=== PATIENT | female | born 1965 | race Hispanic/Latino ===

== ENCOUNTER 2016-08-23 15:48 | Emergency (ER) | payer OTHER ==
[~2016-08-23 15:48] MED LIST: AMOXICILLIN875 M1 PO; ATORVASTATIN CA10 M1 PO; BYDUREON P2 MG/0.65 SC; LANTUS SOL100 UNIT/1 SC; METFORMIN HCL500 M4 PO; PANTOPRAZOLE SO40 M1 PO; PREDNISONE20 M1 PO; TRILIPIX135 M1 PO
--- NOTE | 2016-08-23 16:30 | ED HEADACHE COMPLAINT ---
History of Present Illness General Chief Complaint: General Adult Stated Complaint: PT IS HAVING PAIN IN THE [facility] FOR 2DYS Source: patient Exam Limitations: no limitations Vital Signs & Intake/Output Vital Signs & Intake/Output Vital Signs Date Time Temp Pulse Resp B/P B/P Pulse O2 O2 Flow FiO2 Mean Ox Delivery Rate 08/23 1815 96.1 96 12 138/74 99 Room Air 08/23 1700 97 08/23 1600 98.0 92 22 135/77 97 ED Intake and Output 08/24 0000 08/23 1200 Intake Total 0 Output Total Balance 0 Intake, Oral 0 Patient 160 lb Weight Allergies Coded Allergies: No Known Allergies (04/19/16) Reconcile Medications Amlodipine Besylate 10 MG TABLET 1 TAB PO DAILY BP (Reported) Aspirin (Ecotrin*) 81 MG TABLET.DR 1 TAB PO DAILY HEART/BLOOD (Reported) Atorvastatin Calcium 10 MG TABLET 1 TAB PO QPM CHOLESTEROL (Reported) Butalb/Acetaminophen/Caffeine (Fioricet 50-300-40 MG Capsule) 50 MG-300 MG-40 MG CAPSULE 1 TAB PO TID PRN HEADACHE Cholecalciferol (Vitamin D3) (Vitamin D) 1,000 UNIT TABLET 1 TAB PO DAILY SUPPLEMENT (Reported) Exenatide Microspheres (Bydureon Pen) 2 MG/0.65 ML PEN.INJCTR 2 MG SC QTHURS DM (Reported) Fenofibrate Nanocrystallized (Fenofibrate) 145 MG TABLET 1 TAB PO DAILY CHOLESTEROL/TRIGLYCERIDES (Reported) Insulin Glargine,Hum.rec.anlog (Lantus Solostar) 100 UNIT/ML (3 ML) INSULN.PEN 30 UNIT SC QPM DM (Reported) Ketorolac Tromethamine 10 MG TABLET 1 TAB PO TID PRN HEADACHE Metformin HCl (Metformin HCl ER) 500 MG TAB.ER.24H 1 TAB PO BID DM (Reported) Pantoprazole Sodium 40 MG TABLET.DR 1 TAB PO DAILY GI (Reported) Triage Note: PER PT PULSATATION TO [facility] X 3 DAYS NO BLURRY VISION NO DIZZYNESS INTERMITTANT IN NATURE. Triage Nurses Notes Reviewed? yes Onset: 2 days Duration: day(s):, intermittent Timing: multiple episodes daily Quality/Severity: mild Head Injury Location: none HPI: pt is a 51 y/o female with h/o DM and HLD presenting with intermittent episodes of throbbing pain to temporal area x2 days. Reports episodes last a few seconds and then self resolve, no identifiable triggers. Has not tried anything for pain. Denies visual changes, claudication, or fevers. Patient does state that she has had increased frequency of migraine headaches however in the past 2 days symptoms are "different" Denies any fever or chills blurred vision nausea vomiting neck pain neck stiffness. Patient has tried Motrin with no relief of symptoms. Currently patient is asymptomatic (TONIA CONNORS) Past History Travel History Traveled to [place] past 21 day No Medical History Any Pertinent Medical History? see below for history Neurological: NONE EENT: NONE Cardiovascular: hyperlipidemia Gastrointestinal: GERD Hepatic: NONE Renal: NONE Musculoskeletal: NONE Psychiatric: NONE Endocrine: diabetes Surgical History Surgical History: non-contributory Psychosocial History What is your primary language German Tobacco Use: Current Daily Use Daily Tobacco Use Amount/Type: => 5 Cigarettes daily Family History Hx Contributory? No (TONIA CONNORS) Review of Systems Review of Systems Constitutional: Reports: no symptoms. Eyes: Reports: see HPI. Denies: blurred vision, drainage, decreased acuity, foreign body sensation, inflammation, pain, photophobia, previous injury, shadows. Ears, Nose, Throat, Mouth: Reports: no symptoms. Respiratory: Reports: no symptoms. Cardiovascular: Reports: no symptoms. Gastrointestinal/Abdominal: Reports: no symptoms. Genitourinary: Reports: no symptoms. Musculoskeletal: Reports: no symptoms. Skin: Reports: no symptoms. Neurological/Psychological: Reports: see HPI, headache. Hematologic/Endocrine: Reports: no symptoms. Endocrine: Reports: no symptoms. Immunologic/Allergic: Reports: no symptoms. All Other Systems: Reviewed and Negative (TONIA CONNORS) Physical Exam Physical Exam General Appearance: well developed/nourished, no apparent distress, alert Cranial Nerves: normal hearing, normal speech, PERRL Comments: Well-developed well-nourished person in no acute distress HEENT: Normal EENT exam, extraocular motion intact, no nystagmus. Pupils equally round and reactive to light and accommodation. Nose is atraumatic. External auditory canal and Tympanic membranes clear. Pharynx normal. No swelling or edema. Nontender temporal region Neck: Supple, no lymphadenopathy, normal range of motion without pain or tenderness No trismus no pain with jaw movement Back: Nontender, no CVA tenderness. Full range of motion Cardiovascular: Regular rate and rhythms no murmurs rubs or gallops, normal JVP Respiratory: Chest nontender. No respiratory distress.breath sounds clear to auscultation bilaterally Abdomen: Soft, nontender nondistended, no appreciable organomegaly. Normal bowel sounds. No ascites Extremity: No edema, no calf tenderness to palpation, normal and equal pulses. Neuro: Alert oriented x3, motor sensory normal, cranial nerves II through XII grossly intact. Skin: No appreciable rash on exposed skin, skin is warm and dry. Psych: Mood and affect is normal, memory and judgment is normal. Core Measures Severe Sepsis Present: No Septic Shock Present: No (TONIA CONNORS) Progress Differential Diagnosis: carotid dissection, cav sinus thromb, cluster ROBERTS, encephalitis, IC mass/tumor, intracranial Hem., meningitis, migraine ROBERTS, musculoskeletal pain, sinusitis, SSS thrombosis, subarach. Hem., tension ROBERTS, temporal arteritis, TMJ syndrome, viral cephalgia Plan of Care: Orders Procedure Date/time Status WESTERGREN SED RATE 08/23 1715 Complete C-REACTIVE PROTEIN 08/23 1715 Complete Laboratory Tests 08/23/16 1730: C-Reactive Prot, Quant 0.5, ESR Westergren 4 Blood work will be obtained for rule out giant cell arteritis Patient is currently resting comfortably no apparent distress Blood work was unremarkable for concerns of giant cell arteritis. Upon discharge patient looks well patient will be treated for concerns of cluster headache migraine. Patient was discharged and noted to be asymptomatic at the time (TONIA CONNORS) Departure Departure Disposition: HOME OR SELF CARE Condition: Stable Clinical Impression Primary Impression: Cluster headache Referrals: EMMETT FLORES MD (PCP/Family) Additional Instructions: As discussed begin the prescription of ketorolac for headaches BEGIN the prescription of Fioricet for breakthrough headache relief. Prescription is waiting at [facility] pharmacy. In 3 days if no better follow-up with primary care doctor. If symptoms worsen return to emergency room Departure Forms: Customer Survey General Discharge Information Prescriptions: Current Visit Scripts Ketorolac Tromethamine 1 TAB PO TID PRN HEADACHE #15 TAB Butalb/Acetaminophen/Caffeine (Fioricet 50-300-40 MG Capsule) 1 TAB PO TID PRN HEADACHE #15 TAB (TONIA CONNORS) PA/CAP MAKER Co-Sign Statement Statement: ED Attending supervision documentation- [] I saw and evaluated the patient. I have also reviewed all the pertinent lab results and diagnostic results. I agree with the findings and the plan of care as documented in the PA's/CAP MAKER's documentation. x I have reviewed the ED Record and agree with the PA's/CAP MAKER's documentation. [] Additions or exceptions (if any) to the PAs/CAP MAKER's note and plan are summarized below: [] (RAMON ARNOLD,OBDULIO)
[2016-08-23] MEDS ORDERED: FENOFIBRATE145 M1 PO (16:33)
[2016-08-23] MEDS ORDERED: AMLODIPINE BESY10 M1 PO (16:33)
[2016-08-23] MEDS ORDERED: VITAMIN D1000 UNIT PO (16:34)
[2016-08-23] MEDS ORDERED: ASPIRIN EC81 M1 PO (16:34)
[2016-08-23 18:15] VITALS: BP 138/74
[2016-08-23] MEDS ORDERED: FIORICET 50-301 EACH PO (18:32)
[2016-08-23] MEDS ORDERED: KETOROLAC TROME10 M1 PO (18:32)
== END 2016-08-23 18:54 ==
LOC: ERH 15:48
DX: G44.009 Cluster headache syndrome, unspecified, not intractable (principal)
CPT/HCPCS: 96372; J1885